=== PATIENT | female | born 1970 | race Caucasian/White ===

== ENCOUNTER 2016-04-15 06:16 | Emergency (ER) | payer OTHER ==
[~2016-04-15] VITALS: Ht 165.1 cm; Wt 81.1 kg
[~2016-04-15 06:16] MED LIST: AMIT25TA9 PO; DIAZ2TAB PO; MELO7.5T5 PO
[2016-04-15 06:19] VITALS: TEMP 36.7; Ht 165.1 cm; Wt 81.1 kg
[2016-04-15] MEDS ORDERED: SODIUM CHLORIDE 0.9% 1000ML 2,000 ML IV STA (06:44)
[2016-04-15] MEDS ORDERED: ONDANSETRON INJ 2 MG/ML 2 ML VIAL IV STA ×2 (06:44→08:11)
[2016-04-15 07:14] LABS: BASO % 0.1 %; BASO ABS # 0.01 K/uL (0-0.2); COMPLETE YES; EOS % 0.4 %; HEMATOCRIT 40.3 % (37-47); IG% 0.1 %; LYMPH ABS # 0.38 K/uL (1.2-3.4); MEAN CELL VOLUME 88.6 fL (80-100); MEAN CORPUSCULAR HEMOGLOBIN 31.2 pg (25-34); MEAN CORPUSCULAR HGB CONC 35.2 g/dl (32-36); MEAN PLATELET VOLUME 9.7 fL (7.4-10.4); MONO % 3.5 %; NEUT % 91.9 %; PLATELET COUNT 187 K/uL (130-400); RED BLOOD COUNT 4.55 M/uL (4.2-5.4); WHITE BLOOD COUNT 9.41 K/uL (4.8-10.8)
[2016-04-15] MEDS ORDERED: CITA10TA8 PO (07:29)
[2016-04-15] MEDS ORDERED: CIPR1TAB11 PO (07:29)
[2016-04-15] MEDS ORDERED: CITA20TA9 PO (07:29)
[2016-04-15 07:37] LABS: CALCIUM 8.5 mg/dl (8.5-10.1); CREATININE 0.6 mg/dl (0.60-1.20); POTASSIUM 4.1 mmol/L (3.5-5.1)
[2016-04-15 07:38] LABS: URINE APPEARANCE CLEAR (CLEAR); URINE BILIRUBIN NEG (NEG); URINE COLOR YELLOW; URINE EPITHELIAL CELL AUTO >30 /lpf (0-5); URINE NITRITE NEG (NEG); URINE PH 8.5 (4.5-7.5); URINE SPECIFIC GRAVITY 1.022 (1.000-1.030); UROBILINOGEN NEG (NEG); ZZUR CULT IF INDIC CLEAN CATCH NO
[2016-04-15 07:41] LABS: MANUAL MICROSCOPIC REQUIRED? NO; REVIEW REQ? NO
[2016-04-15] MEDS ORDERED: ONDA4TAB10 SL (07:59)
--- NOTE | 2016-04-15 08:01 | EMERGENCY ROOM VISIT NOTE ---
History Report prepared by Aida: Mariela Valladares Under the Supervision of: Dr. Sergio Arellano D.O. First contact with patient: 06:42 Chief Complaint: VOMITING Stated Complaint: VOMITING ALL NIGHT,DIARRHEA Nursing Triage Summary: pt reports NVD X 24 hrs with abdominal pain and WALLS History of Present Illness The patient is a 45 year old female who presents to the Emergency Room with complaints of multiple episodes of vomiting over the past 20 hours. Currently, she is feeling nauseous and she rates her discomfort as an 8/10. Since the time of onset, the patient has been vomiting approximately once per hour, and she has not been able to keep any food or liquids down without vomiting them back up. Patient has also passed 2 movements of watery diarrhea. She now states that she now feels dehydrated as her mouth is dry. The patient does note cramping abdominal pain which she attributes to wretching when vomiting. She also has a headache. The patient states that she was feeling well up until the time of onset yesterday at 11am, and she denies fevers, chills, sore throat, chest pain , cough, shortness of breath, hematochezia, melena, or urinary symptoms. Patient did call her PCP but was then referred to the ED for further evaluation this morning. Source of History: patient Onset: over the past 20 hours Position: abdomen Symptom Intensity: 8/10 Quality: other (vomiting) Timing: other (multiple episodes) Modifying Factors (Worsening): eating, drinking Associated Symptoms: + abdominal pain, + diarrhea, + headache, + nausea, No SOB, No chest pain, No chills, No cough, No fevers, No hematochezia, No melena, No sorethroat, No urinary symptoms Review of Systems See HPI for pertinent positives & negatives. A total of 10 systems reviewed and were otherwise negative. Past Medical & Surgical Medical Problems: (1) Anxiety State Nos (2) Chronic Sinusitis Nos (3) Depressive Disorder Nec (4) Dysmenorrhea (5) Headache (6) Menorrhagia (7) Nausea, vomiting, and diarrhea Family History No pertinent family history Social History Smoking Status: Never Smoker Alcohol Use: none Drug Use: none Occupation Status: employed Current/Historical Medications Scheduled Ciprofloxacin Tab (Cipro), 250 MG PO BID Citalopram Hydrobromide (Celexa), 10 MG PO DAILY Citalopram Hydrobromide (Celexa), 20 MG PO DAILY Ondasetron Odt (Zofran Odt), 4 MG SL Q6H Allergies Coded Allergies: No Known Allergies (Verified , 04/15/16) Physical Exam Vital Signs Date Time Temp Pulse Resp B/P Pulse Ox O2 Delivery O2 Flow Rate FiO2 04/15/16 07:54 80 20 101/60 100 Room Air 04/15/16 06:19 36.7 102 18 106/70 97 Room Air Physical Exam CONSTITUTIONAL/VITAL SIGNS: Reviewed / noted above. GENERAL: Non-toxic in appearance. INTEGUMENTARY: Warm, dry, and [place]. HEAD: Normocephalic. EYES: without scleral icterus or trauma. ENT/OROPHARYNX: clear and moist. LYMPHADENOPATHY/NECK: Is supple without lymphadenopathy or meningismus. RESPIRATORY: Lungs clear and equal. CARDIOVASCULAR: Regular rate and rhythm. GI/ABDOMEN: Soft and nontender. No organomegaly or pulsatile mass. No rebound or guarding. Normal bowel sounds. EXTREMITIES: Warm and well perfused. BACK: No CVA tenderness. NEUROLOGICAL: Intact without focal deficits. PSYCHIATRIC: normal affect. MUSCULOSKELETAL: Normally developed with good muscle tone. Medical Decision & Procedures Laboratory Results 04/15/16 07:05 Red Blood Count 4.55, Mean Corpuscular Volume 88.6, Mean Corpuscular Hemoglobin 31.2, Mean Corpuscular Hemoglobin Concent 35.2, Mean Platelet Volume 9.7, Neutrophils (%) (Auto) 91.9, Lymphocytes (%) (Auto) 4.0, Monocytes (%) (Auto) 3.5, Eosinophils (%) (Auto) 0.4, Basophils (%) (Auto) 0.1, Neutrophils # (Auto) 8.64, Lymphocytes # (Auto) 0.38, Monocytes # (Auto) 0.33, Eosinophils # (Auto) 0.04, Basophils # (Auto) 0.01 04/15/16 07:05 Test 04/15/16 07:05 04/15/16 07:12 White Blood Count 9.41 K/uL (4.8-10.8) Red Blood Count 4.55 M/uL (4.2-5.4) Hemoglobin 14.2 g/dL (12.0-16.0) Hematocrit 40.3 % (37-47) Mean Corpuscular Volume 88.6 fL (80-100) Mean Corpuscular Hemoglobin 31.2 pg (25-34) Mean Corpuscular Hemoglobin Concent 35.2 g/dl (32-36) Platelet Count 187 K/uL (130-400) Mean Platelet Volume 9.7 fL (7.4-10.4) Neutrophils (%) (Auto) 91.9 % Lymphocytes (%) (Auto) 4.0 % Monocytes (%) (Auto) 3.5 % Eosinophils (%) (Auto) 0.4 % Basophils (%) (Auto) 0.1 % Neutrophils # (Auto) 8.64 K/uL (1.4-6.5) Lymphocytes # (Auto) 0.38 K/uL (1.2-3.4) Monocytes # (Auto) 0.33 K/uL (0.11-0.59) Eosinophils # (Auto) 0.04 K/uL (0-0.5) Basophils # (Auto) 0.01 K/uL (0-0.2) RDW Standard Deviation 42.7 fL (36.4-46.3) RDW Coefficient of Variation 13.2 % (11.5-14.5) Immature Granulocyte % (Auto) 0.1 % Immature Granulocyte # (Auto) 0.01 K/uL (0.00-0.02) Anion Gap 8.0 mmol/L (3-11) Est Creatinine Clear Calc Drug Dose 124.6 ml/min Estimated GFR () 127.6 Estimated GFR (Non- 110.1 BUN/Creatinine Ratio 24.0 (10-20) Calcium Level 8.5 mg/dl (8.5-10.1) Total Bilirubin 1.0 mg/dl (0.2-1) Direct Bilirubin 0.2 mg/dl (0-0.2) Aspartate Amino Transf (AST/SGOT) 14 U/L (15-37) Alanine Aminotransferase (ALT/SGPT) 19 U/L (12-78) Alkaline Phosphatase 52 U/L (45-117) Total Protein 6.9 gm/dl (6.4-8.2) Albumin 3.8 gm/dl (3.4-5.0) Lipase 168 U/L (73-393) Urine Color YELLOW Urine Appearance CLEAR (CLEAR) Urine pH 8.5 (4.5-7.5) Urine Specific [place] 1.022 (1.000-1.030) Urine Protein NEG (NEG) Urine Glucose (UA) NEG (NEG) Urine Ketones NEG (NEG) Urine Occult Blood NEG (NEG) Urine Nitrite NEG (NEG) Urine Bilirubin NEG (NEG) Urine Urobilinogen NEG (NEG) Urine Leukocyte Esterase NEG (NEG) Urine WBC (Auto) 0 /hpf (0-5) Urine RBC (Auto) 0-4 /hpf (0-4) Urine Hyaline Casts (Auto) 1-5 /lpf (0-5) Urine Epithelial Cells (Auto) >30 /lpf (0-5) Urine Bacteria (Auto) NEG (NEG) Laboratory results as stated above per my review. Medications Administered Medications (Trade) Dose Ordered Sig/Poppy Route Start Time Stop Time Status Last Admin Dose Admin Sodium Chloride (Nss 1000ml) 2,000 ml @ 999 mls/hr Q2H1M STAT IV 04/15/16 06:44 04/15/16 08:44 04/15/16 07:11 999 MLS/HR Ondansetron HCl (Zofran Inj) 4 mg NOW STAT IV 04/15/16 06:44 04/15/16 06:46 DC 04/15/16 07:12 4 MG ED Course 0643: Previous medical records were reviewed. The patient was evaluated in room A3. A complete history and physical examination was performed. 0644: Zofran 4 mg IV and NSS 2,000 ml @ 999 mls/hr IV were ordered. 0805: Upon reevaluation, the patient was doing well and appeared to be resting more comfortably. I updated her on the results of her lab tests. Discharge instructions were also discussed. She verbalized her understanding and agreement with the treatment plan, and she is now ready for disposition. Medical Decision Differential diagnosis: Etiologies such as gastroenteritis, food borne illness, infections, appendicitis , diverticulitis, inflammatory bowel disease, obstruction, GI bleed, biliary pathology, as well as others were entertained. This is a 45-year-old female who presents to the ED with a chief complaint of nausea, vomiting and diarrhea. The patient's symptoms started yesterday. She reports 2 episodes of diarrhea and multiple episodes of vomiting. Her vital signs are stable. Her physical exam did not reveal any tenderness in the abdomen or other significant symptoms. Her daughter has the same symptoms. The patient's CBC, complete metabolic panel and lipase are normal. Urine did not show ketones or infection. The patient was told the results of the tests. She was treated here with IV fluids and IV Zofran. She'll be discharged on Zofran. Impression Primary Impression: Nausea, vomiting, and diarrhea Scribe Attestation The scribe's documentation has been prepared under my direction and personally reviewed by me in its entirety. I confirm that the note above accurately reflects all work, treatment, procedures, and medical decision making performed by me. Departure Information Dispostion Home / Self-Care Prescriptions Ondasetron Odt (ZOFRAN ODT) 4 Mg Tab 4 MG SL Q6H for Nausea, #10 TAB Prov: Sergio Arellano D.O. 04/15/16 Referrals RV. Edwards MD (PCP) Forms HOME CARE DOCUMENTATION FORM, IMPORTANT VISIT INFORMATION, Work Instructions Return To Work: 3 days Specific Date: 04/17/16 Patient Instructions A Signature Page, ED Nausea Vomiting, [facility] Additional Instructions Zofran: Allow one tablet to dissolve under the tongue every 6 hours as needed for nausea or vomiting. Symptoms should improve over the next 3-5 days. Follow-up with your doctor for further care and evaluation in 5 days if symptoms persist. Return to the emergency department for worsening or new symptoms or any concerns. You have been examined and treated today on an emergency basis only. This is not a substitute for, or an effort to provide, complete comprehensive medical care. It is impossible to recognize and treat all injuries or illnesses in a single emergency department visit. It is therefore important that you follow up closely with your doctor. Call as soon as possible for an appointment.
[2016-04-15 08:37] VITALS: BP 99/58; PULSE 89; O2SAT 97
== END 2016-04-15 08:40 | disposition home or self-care (01) ==
LOC: C.EDB 06:17 → C.EDA 08:40
DX: R11.2 Nausea with vomiting, unspecified (principal); R19.7 Diarrhea, unspecified; F41.9 Anxiety disorder, unspecified; F32.9 Major depressive disorder, single episode, unspecified; Z79.899 Other long term (current) drug therapy

== ENCOUNTER 2016-06-07 03:24 | Emergency (ER) | payer OTHER ==
[~2016-06-07] VITALS: Ht 162.6 cm; Wt 81.2 kg
[~2016-06-07 03:24] MED LIST changes: -AMIT25TA9 PO; +CIPR1TAB11 PO; +CITA10TA8 PO; +CITA20TA9 PO; -DIAZ2TAB PO; -MELO7.5T5 PO; +ONDA4TAB10 SL
[2016-06-07 03:40] VITALS: Ht 162.6 cm; Wt 81.2 kg
[2016-06-07 05:29] LABS: BASO % 0.1 %; BASO ABS # 0.01 K/uL (0-0.2); COMPLETE YES; HEMATOCRIT 37.4 % (37-47); IG% 0.1 %; LYMPH % 4.9 %; LYMPH ABS # 0.35 K/uL (1.2-3.4); MEAN CORPUSCULAR HEMOGLOBIN 30.4 pg (25-34); MEAN CORPUSCULAR HGB CONC 34.5 g/dl (32-36); MEAN PLATELET VOLUME 10.1 fL (7.4-10.4); MONO % 11.7 %; NEUT % 83.2 %; PLATELET COUNT 228 K/uL (130-400); RED BLOOD COUNT 4.25 M/uL (4.2-5.4); WHITE BLOOD COUNT 7.11 K/uL (4.8-10.8)
[2016-06-07 05:38] LABS: BUN/CREATININE RATIO 13.7 (10-20); CALCIUM 8.5 mg/dl (8.5-10.1); CREATININE 0.67 mg/dl (0.60-1.20); POTASSIUM 3.5 mmol/L (3.5-5.1)
[2016-06-07 05:40] LABS: ALB/GLOB RATIO 1.2 (0.9-2)
[2016-06-07] MEDS ORDERED: KETOROLAC TROMETHAMINE 30 MG/ML VIAL IV STA (05:40)
[2016-06-07] MEDS ORDERED: SODIUM CHLORIDE 0.9% 1000ML 1,000 ML IV STA (05:40)
[2016-06-07] MEDS ORDERED: ASPCH81X PO (05:42)
[2016-06-07] MEDS ORDERED: METH1TAB81 PO (05:43)
--- NOTE | 2016-06-07 06:38 | DIAGNOSTIC IMAGING REPORT ---
CHEST 2 VIEWS ROUTINE CLINICAL HISTORY: productive cough COMPARISON STUDY: 06/06/2014 FINDINGS: The cardiac and mediastinal contours are normal. There is no evidence of focal pulmonary consolidation. There is no evidence of failure. No pleural effusions are visualized.[ Minimally prominent basal markings are likely atelectatic. IMPRESSION: No active disease in the chest. Electronically signed by: Pascual Busch M.D. 06/07/2016 6:37 AM Dictated Date/Time: 06/07/2016 6:36 AM
[2016-06-07] MEDS ORDERED: OSELTAMIVIR PHOSPHATE 75 MG CAP PO STA (06:51)
[2016-06-07] MEDS ORDERED: OSEL75CA12 PO (07:16)
--- NOTE | 2016-06-07 07:27 | EMERGENCY ROOM VISIT NOTE ---
History Report prepared by Aida: Vinayak Fleming Under the Supervision of: Dr. Jessica Major D.O. First contact with patient: 05:10 Chief Complaint: RESPIRATORY PROBLEMS Stated Complaint: TROUBLE BREATHING,COUGHING UP MUCOUS Nursing Triage Summary: Chest tightness and cough since thursday morning. History of Present Illness The patient is a 46 year old female who presents to the Emergency Room with complaints of worsening shortness of breath beginning shortly prior to arrival. She states that she woke up this morning with nausea, chest pain and a headache. She also complains of a cough. Nothing has improved her symptoms. Source of History: patient Onset: shortly prior to arrival Quality: other (shortness of breath) Timing: worsening Modifying Factors (Relieving): other (none) Associated Symptoms: + chest pain, + cough, + headache, + nausea Review of Systems See HPI for pertinent positives & negatives. A total of 10 systems reviewed and were otherwise negative. Past Medical & Surgical Medical Problems: (1) Anxiety State Nos (2) Chronic Sinusitis Nos (3) Depressive Disorder Nec (4) Dysmenorrhea (5) Headache (6) Menorrhagia (7) Nausea, vomiting, and diarrhea Family History No pertinent family history Social History Smoking Status: Never Smoker Alcohol Use: none Drug Use: none Occupation Status: employed Current/Historical Medications Scheduled Aspirin (Aspirin Chewable), 81 MG PO DAILY Citalopram Hydrobromide (Celexa), 10 MG PO DAILY Citalopram Hydrobromide (Celexa), 20 MG PO DAILY Methylprednisolone (Medrol), 4 MG PO UD Oseltamivir (Tamiflu), 75 MG PO BID Allergies Coded Allergies: No Known Allergies (Verified , 06/07/16) Physical Exam Vital Signs Date Time Temp Pulse Resp B/P Pulse Ox O2 Delivery O2 Flow Rate FiO2 06/07/16 07:40 36.8 89 16 90/48 93 Room Air 06/07/16 06:05 86 18 119/74 96 Room Air 06/07/16 04:40 96 Room Air 06/07/16 04:23 91 06/07/16 04:21 37.0 95 24 116/76 95 Room Air 06/07/16 03:40 38.3 116 20 110/71 95 Room Air Physical Exam HEENT: Head - normocephalic and atraumatic Pupils are equal, round, and reactive to light. Extraocular eye muscles are intact, and sclera are anicteric. Nose - moist nasal mucosa without discharge. Mouth - moist buccal mucosa. Oropharynx is nonerythematous and there is no tonsillar exudate or edema noted. Neck: Supple; no JVD, nuchal rigidity, cervical lymphadenopathy. Heart: Tachycardic rate with a regular rhythm. There is a normal S1 and S2 with no murmurs, clicks, or gallops appreciated. Lungs: Diminished breath sounds at both lung bases. Abdomen: Soft, completely nontender, nondistended, with good bowel sounds. There are no palpable pulsatile masses or hepatosplenomegaly. There is no guarding, rigidity, or rebound noted. Extremities: No evidence of cyanosis, clubbing, or edema. There are easily palpable peripheral pulses. Skin: hot and dry with poor turgor and no rashes. Medical Decision & Procedures ER Provider Diagnostic Interpretation: X-ray results as stated below per interpretation by me and the radiologist: CHEST 2 VIEWS ROUTINE FINDINGS: The cardiac and mediastinal contours are normal. There is no evidence of focal pulmonary consolidation. There is no evidence of failure. No pleural effusions are visualized.[ Minimally prominent basal markings are likely atelectatic. IMPRESSION: No active disease in the chest. Electronically signed by: Pascual Busch M.D. Laboratory Results 06/07/16 04:04 Red Blood Count 4.25, Mean Corpuscular Volume 88.0, Mean Corpuscular Hemoglobin 30.4, Mean Corpuscular Hemoglobin Concent 34.5, Mean Platelet Volume 10.1, Neutrophils (%) (Auto) 83.2, Lymphocytes (%) (Auto) 4.9, Monocytes (%) (Auto) 11.7, Eosinophils (%) (Auto) 0.0, Basophils (%) (Auto) 0.1, Neutrophils # (Auto ) 5.91, Lymphocytes # (Auto) 0.35, Monocytes # (Auto) 0.83, Eosinophils # (Auto ) 0.00, Basophils # (Auto) 0.01 06/07/16 04:04 Test 06/07/16 04:04 White Blood Count 7.11 K/uL (4.8-10.8) Red Blood Count 4.25 M/uL (4.2-5.4) Hemoglobin 12.9 g/dL (12.0-16.0) Hematocrit 37.4 % (37-47) Mean Corpuscular Volume 88.0 fL (80-100) Mean Corpuscular Hemoglobin 30.4 pg (25-34) Mean Corpuscular Hemoglobin Concent 34.5 g/dl (32-36) Platelet Count 228 K/uL (130-400) Mean Platelet Volume 10.1 fL (7.4-10.4) Neutrophils (%) (Auto) 83.2 % Lymphocytes (%) (Auto) 4.9 % Monocytes (%) (Auto) 11.7 % Eosinophils (%) (Auto) 0.0 % Basophils (%) (Auto) 0.1 % Neutrophils # (Auto) 5.91 K/uL (1.4-6.5) Lymphocytes # (Auto) 0.35 K/uL (1.2-3.4) Monocytes # (Auto) 0.83 K/uL (0.11-0.59) Eosinophils # (Auto) 0.00 K/uL (0-0.5) Basophils # (Auto) 0.01 K/uL (0-0.2) RDW Standard Deviation 44.8 fL (36.4-46.3) RDW Coefficient of Variation 13.8 % (11.5-14.5) Immature Granulocyte % (Auto) 0.1 % Immature Granulocyte # (Auto) 0.01 K/uL (0.00-0.02) D-Dimer 490 ug/L FEU (0-500) Anion Gap 8.0 mmol/L (3-11) Est Creatinine Clear Calc Drug Dose 108.2 ml/min Estimated GFR () 122.2 Estimated GFR (Non- 105.4 BUN/Creatinine Ratio 13.7 (10-20) Calcium Level 8.5 mg/dl (8.5-10.1) Total Bilirubin 0.4 mg/dl (0.2-1) Aspartate Amino Transf (AST/SGOT) 9 U/L (15-37) Alanine Aminotransferase (ALT/SGPT) 19 U/L (12-78) Alkaline Phosphatase 50 U/L (45-117) Troponin I < 0.015 ng/ml (0-0.045) Total Protein 7.1 gm/dl (6.4-8.2) Albumin 3.9 gm/dl (3.4-5.0) Globulin 3.2 gm/dl (2.5-4.0) Albumin/Globulin Ratio 1.2 (0.9-2) Influenza Type A Antigen POS for Influ A (NEG) Influenza Type B Antigen Neg for Influ B (NEG) Laboratory results per my review. Medications Administered Medications (Trade) Dose Ordered Sig/Poppy Route Start Time Stop Time Status Last Admin Dose Admin Ketorolac Tromethamine 30 mg 30 mg NOW STAT IV 06/07/16 05:40 06/07/16 05:43 DC 06/07/16 06:00 30 MG Sodium Chloride (Nss 1000ml) 1,000 ml @ 999 mls/hr Q1H1M STAT IV 06/07/16 05:40 06/07/16 06:40 DC 06/07/16 06:00 999 MLS/HR Oseltamivir Phosphate (Tamiflu Cap) 75 mg NOW STAT PO 06/07/16 06:51 06/07/16 06:52 DC 06/07/16 07:40 75 MG Procedure Medications ordered include: Tamiflu Cap PO, Toradol IV, NSS IV. ECG Indication: SOB/dyspnea Rate (beats per minute): 92 Rhythm: normal sinus Findings: no acute ischemic change, no ectopy ED Course 0534: Past medical records reviewed. The patient was evaluated in room A3. A complete history and physical exam was performed. An IV lock was initiated and labs are drones above. Her nose was swab for influenza. She had a chest x- ray as described above. 0540: Ordered NSS 1000 mL @ 999 mL/hr IV, Toradol Inj 30 mg IV. 0651: Ordered Tamiflu Cap 75 mg PO. 0712: Upon reevaluation, the patient's chest and back pain have improved slightly. I discussed findings and results with her. The patient verbalized agreement of the treatment plan. She was discharged home. Medical Decision The patient is a 46 year old female who presents to the ED with shortness of breath. Differential diagnosis includes PE, influenza, pneumonia, bronchitis, cardiac ischemia, as well as other etiologies were considered. Laboratory studies: influenza A positive. Negative troponin. Glucose of 117. Normal LFTs and renal function. D-dimer 140. Stable H&H. No leukocytosis. This is a 46 year old female patient who presents to the emergency department with a cough and shortness of breath. She did describe some associated left- sided chest discomfort and back pain that seems to radiate up and her neck. However, the patient does describe diffuse body aches as well. D-dimer was negative. Cardiac enzymes and EKG were negative. The patient does have a positive flu test. She had moderately for for symptoms with IV normal saline and Toradol. I will start the patient on Tamiflu. I have asked her to quarantine herself over the next 2 days. Impression Primary Impression: Influenza A Scribe Attestation The scribe's documentation has been prepared under my direction and personally reviewed by me in its entirety. I confirm that the note above accurately reflects all work, treatment, procedures, and medical decision making performed by me. Departure Information Dispostion Home / Self-Care Prescriptions Oseltamivir (Tamiflu) 75 Mg Cap 75 MG PO BID, #10 CAP Prov: Jessica Major D.O. 06/07/16 Referrals No Doctor, Assigned (PCP) Forms HOME CARE DOCUMENTATION FORM, IMPORTANT VISIT INFORMATION, WORK / SCHOOL INSTRUCTIONS Patient Instructions ED Flu, My [facility] Additional Instructions Rest. Take plenty of clear liquids Take tamiflu - 1 tab. every 12 hours Take ibuprofen for any further back pain or chest pain Avoid any public places over the next 48 hours
[2016-06-07 07:40] VITALS: BP 90/48; PULSE 89; TEMP 36.8; O2SAT 93
== END 2016-06-07 07:53 | disposition home or self-care (01) ==
LOC: C.EDB 03:26 → C.EDA 07:53
DX: J11.1 Influenza due to unidentified influenza virus with other respiratory manifestations (principal); F41.9 Anxiety disorder, unspecified; F32.9 Major depressive disorder, single episode, unspecified; Z79.82 Long term (current) use of aspirin; Z79.899 Other long term (current) drug therapy

== ENCOUNTER → 2016-07-18 | Outpatient (CLI) | payer BC ==
[~2016-07-18] MED LIST changes: +ASPCH81X PO; -CIPR1TAB11 PO; +METH1TAB81 PO; -ONDA4TAB10 SL; +OSEL75CA12 PO
[2016-07-18 12:11] LABS: CHOLESTEROL/HDL RATIO 2.2; THYROID STIMULATING HORMONE 1.81 uIu/ml (0.300-4.500)
== END | disposition home or self-care (01) ==
LOC: C.LABBC 07:23
PROVIDERS: ATTEND Internal Medicine
DX: Z13.220 Encounter for screening for lipoid disorders (principal); R76.8 Other specified abnormal immunological findings in serum

== ENCOUNTER → 2017-03-16 | Outpatient (CLI) | payer BC ==
[~2017-03-16] MED LIST changes: +GADAVIST IV PRN; -OSEL75CA12 PO
--- NOTE | 2017-03-16 09:38 | DIAGNOSTIC IMAGING REPORT ---
BRAIN COMBO FOR IAC CLINICAL HISTORY: Sudden bilateral sensorineural neural hearing loss. COMPARISON STUDY: MRI of the brain July 18, 2014. TECHNIQUE: Utilizing a 1.5 [place] magnet, multiplanar, multi echo imaging of the brain was performed pre and postcontrast administration with thin cut imaging through the internal auditory canals. Injection of 7.5 cc of Gadavist IV was uneventful. FINDINGS: There are no areas of restricted diffusion. No acute intracranial hemorrhage, midline shift or mass effect is present. There is no intracranial mass or pathologic enhancement. No abnormalities are identified within the internal auditory canals. There are moderate to large bilateral mastoid effusions. Ventricular system is stable. Basilar cisterns are patent. There are no extra-axial collections. A suspected prominent perivascular space within the right temporal lobe is unchanged. The appearance of the brain is unchanged since exam of July 18, 2014. There is minimal mucosal thickening of the ethmoid sinuses. IMPRESSION: 1. No acute intracranial findings. 2. No abnormalities within the internal auditory canals. 3. Moderate to large bilateral mastoid effusions. Electronically signed by: Collins Calvillo M.D. 03/16/2017 9:37 AM Dictated Date/Time: 03/16/2017 9:29 AM
== END | disposition home or self-care (01) ==
LOC: C.MRIBC 08:16
PROVIDERS: ATTEND Physician Assistant
DX: H91.20 Sudden idiopathic hearing loss, unspecified ear (principal); H90.5 Unspecified sensorineural hearing loss

== ENCOUNTER → 2017-03-19 | Outpatient (CLI) | payer BC ==
[~2017-03-19] MED LIST changes: -GADAVIST IV PRN
[2017-03-19 19:14] LABS: BASO % 0.3 %; BASO ABS # 0.03 K/uL (0-0.2); COMPLETE YES; EOS % 1.8 %; HEMATOCRIT 39.2 % (37-47); IG% 0.3 %; LYMPH % 27.1 %; LYMPH ABS # 2.59 K/uL (1.2-3.4); MEAN CELL VOLUME 93.1 fL (80-100); MEAN CORPUSCULAR HEMOGLOBIN 30.4 pg (25-34); MEAN CORPUSCULAR HGB CONC 32.7 g/dl (32-36); MEAN PLATELET VOLUME 9.4 fL (7.4-10.4); MONO % 5.5 %; PLATELET COUNT 239 K/uL (130-400); RED BLOOD COUNT 4.21 M/uL (4.2-5.4); WHITE BLOOD COUNT 9.54 K/uL (4.8-10.8)
[2017-03-19 20:21] LABS: LYME DISEASE AB IGG NEG (NEG); LYME DISEASE AB IGM NEG (NEG)
[2017-03-24 20:21] LABS: ANTI-68 kd Ag (HSP-70 Ab) NEGATIVE (NEGATIVE)
== END | disposition home or self-care (01) ==
LOC: C.LAB 18:17
PROVIDERS: ATTEND Physician Assistant
DX: H90.5 Unspecified sensorineural hearing loss (principal)